=== PATIENT | male | born 1985 | race Caucasian/White ===

== ENCOUNTER → 2020-09-29 10:36 | Outpatient (CLI) | payer OTHER ==
[~2020-09-29 10:36] MED LIST: MEDROL4 MG PO; NASONEX17 GM NS; ZYRTEC10 MG PO
== END | disposition home or self-care (01) ==
LOC: LAB 10:36
PROVIDERS: ATTEND Internal Medicine Geriatric Medicine
DX: E03.8 Other specified hypothyroidism (principal); I11.9 Hypertensive heart disease without heart failure; Z13.21 Encounter for screening for nutritional disorder; E55.9 Vitamin D deficiency, unspecified; E78.2 Mixed hyperlipidemia

== ENCOUNTER 2023-01-29 22:36 | Emergency (ER) | payer OTHER ==
[~2023-01-29] VITALS: Ht 175.3 cm; Wt 83.5 kg
== END 2023-01-30 04:39 | disposition home or self-care (01) ==
LOC: ER 22:36
DX: R42 Dizziness and giddiness (principal)

== ENCOUNTER 2023-09-11 20:02 | Emergency (ER) | payer OTHER ==
[~2023-09-11] VITALS: Ht 175.3 cm; Wt 84.4 kg
[2023-09-12 01:35] LABS: MEAN CELL VOLUME 77.6 fL (80.0-100.00); MEAN CORPUSCULAR HEMOGLOBIN 25.9 pg (27.00-32.0); MEAN CORPUSCULAR HGB CONC 33.4 g/dl (32.0-36.0); PLATELET COUNT 239 K/uL (150-450); RED CELL DISTRIBUTION WIDTH 13.5 % (11.5-14.5)
[2023-09-12 01:46] LABS: BILIRUBIN TOTAL 1.23 mg/dL (0.3-1.2); CALCIUM 9.1 mg/dL (8.5-10.1); CREATININE SERUM 0.99 mg/dL (0.70-1.30); GFR 84.6; GLOBULINA 3.8 G/DL (2.4-3.5); POTASSIUM 4.32 mEq/L (3.5-5.1); TOTAL PROTEIN 7.8 gm/dL (6.4-8.2)
[2023-09-12 05:44] LABS: INR 1.07; PARTIAL THROMBOPLASTIN TIME 27.7 SECONDS (22.0-34.0); PROTHROMBIN TIME 11.2 SECONDS (9.0-11.5)
[2023-09-12 05:48] LABS: ALBUMIN 3.6 gm/dL (3.4-5.0); BILIRUBIN TOTAL 1.22 mg/dL (0.3-1.2); BILIRUBIN,CONJUGATED 0.27 mg/dL (0.0-0.2); BILIRUBIN,UNCONJUGATED 0.95 mg/dL (0.0-0.6); TOTAL PROTEIN 7.8 gm/dL (6.4-8.2)
== END 2023-09-12 12:44 | disposition home or self-care (01) ==
LOC: ER 20:03
PROVIDERS: General Practice
DX: R07.89 Other chest pain (principal); R10.13 Epigastric pain; K21.9 Gastro-esophageal reflux disease without esophagitis